=== PATIENT | male | born 1960 | race Caucasian/White ===

== ENCOUNTER 2018-03-05 16:58 | Emergency (ER) | payer OTHER ==
[~2018-03-05] VITALS: Ht 170.2 cm; Wt 95.0 kg
[~2018-03-05 16:58] MED LIST: AMOXICILLIN/CL875 MG OR; AUGMENTIN875 MG PO; AUGMENTIN875TAB PO; CIPRODEX1 ML AD; CIPRODEX1 ML OT; FIORICET PO; FLONASE NASAL50 MCG; TESSALON PER100 MG PO
[2018-03-05 18:50] VITALS: BP 133/63
== END 2018-03-05 18:53 | disposition home or self-care (01) | DRG 563 ==
LOC: ED 16:58
DX: S83.91XA Sprain of unspecified site of right knee, initial encounter (principal); E78.5 Hyperlipidemia, unspecified; W17.89XA Other fall from one level to another, initial encounter; Y93.89 Activity, other specified; Y92.89 Other specified places as the place of occurrence of the external cause; Y99.0 Civilian activity done for income or pay

== ENCOUNTER 2022-10-20 08:31 | Day surgery (SDC) | payer BC ==
[~2022-10-20] VITALS: Ht 170.2 cm; Wt 86.2 kg
[~2022-10-20 08:31] MED LIST changes: +CRESTOR20 MG PO; +ENTERIC COATED325 MG PO; +PLAVIX75 MG PO
[2022-10-20 10:47] VITALS: BP 121/81
[2022-10-21] MEDS ORDERED: ULTRAM50 MG PO (02:32)
== END 2022-10-20 15:51 | DRG 951 ==
LOC: ENDO 08:31 → ORM 10:15 → ENDO 15:51
PROVIDERS: ATTEND Internal Medicine Gastroenterology
PROC: 0DJD8ZZ Inspection of Lower Intestinal Tract, Via Natural or Artificial Opening Endoscopic (ICD-10-PCS; principal; 2022-10-20)
DX: Z12.11 Encounter for screening for malignant neoplasm of colon (principal); K57.30 Diverticulosis of large intestine without perforation or abscess without bleeding; K64.8 Other hemorrhoids; E78.2 Mixed hyperlipidemia; Z79.02 Long term (current) use of antithrombotics/antiplatelets; Z86.73 Personal history of transient ischemic attack (TIA), and cerebral infarction without residual deficits
CPT/HCPCS: Q9967

== ENCOUNTER 2022-10-20 21:46 | Emergency (ER) | payer BC ==
[2022-10-20] VITALS (7 sets, daily range): BP systolic 140–184; BP diastolic 76–102
[~2022-10-20] VITALS: Ht 170.2 cm; Wt 84.0 kg
[2022-10-20 23:20] LABS: ALBUMIN 4.6 g/dL (3.2-5.0); ALKALINE PHOSPHATASE 69 u/l (38-126); AMYLASE 93 u/l (30-110); ANION GAP 13 (6-22 (CALC)); BILIRUBIN, TOTAL 1.2 mg/dL (0.2-1.3); BUN 18 mg/dL (8-23); BUN/CREATININE RATIO 15 (12-20 (CALC)); CARBON DIOXIDE 27 mmol/l (22-30); CHLORIDE 102 mmol/l (95-108); CREATININE 1.2 mg/dL (0.7-1.3); GFR FOR AFR.AMER. > 60 ML/MIN (>=60 (CALC)); GFR OTHER RACES > 60 ML/MIN (>=60 (CALC)); LIPASE 123 u/l (23-300); SGOT/AST 27 u/l (19-48); SODIUM 138 mmol/l (137-146); TOTAL PROTEIN 7.9 g/dL (6.3-8.2)
[2022-10-20 23:21] LABS: BASO% 0.7 % (0-3); EOS% 3.3 % (0-8); HEMATOCRIT 45.7 % (39.0-50.0); HEMOGLOBIN 15.1 g/dl (14.0-18.0); IMMATURE GRANULOCYTES 0.2 % (0.0-5.0); LYMPH% 29.9 % (15-41); MEAN CORPUSCULAR HGB 30.4 pG CALC (26.0-32.0); MONO% 8.3 % (2-13); NEUT# 5.5 thou/uL (1.82-7.42); NEUT% 57.6 % (42-76); RED BLOOD COUNT 4.97 mill/uL (4.70-6.10); RED CELL DISTRI WIDTH 13.1 % (11.5-15.5)
[2022-10-20 23:25] LABS: POTASSIUM 3.7 mmol/l (3.5-5.1)
[2022-10-21] VITALS (9 sets, daily range): BP systolic 126–147; BP diastolic 75–90
[2022-10-21 01:51] LABS: URINE BILIRUBIN - DIPSTICK NEGATIVE (NEGATIVE); URINE BLOOD DIPSTICK NEGATIVE (NEGATIVE); URINE COLOR YELLOW; URINE GLUCOSE - DIPSTICK NEGATIVE (NEGATIVE); URINE KETONE NEGATIVE (NEGATIVE); URINE LEUK ESTERASE NEGATIVE (NEGATIVE); URINE PH 5.5 (4.5-8.0); URINE PROTEIN - DIPSTICK NEGATIVE (NEG-TRACE); URINE SPECIFIC GRAVITY 1.025; URINE UROBILINOGEN - DIPSTICK 0.2 E.U./dL (0.2)
[2022-10-21 01:55] LABS: URINE NITRITE - DIPSTICK NEGATIVE (Negative)
[2022-10-21] MEDS ORDERED: ULTRAM50 MG PO (02:32)
== END 2022-10-21 02:45 | disposition home or self-care (01) | DRG 392 ==
LOC: ED 21:46
PROVIDERS: Emergency Medicine
DX: R10.33 Periumbilical pain (principal); E78.5 Hyperlipidemia, unspecified; Z98.890 Other specified postprocedural states
CPT/HCPCS: Q9967

== ENCOUNTER 2024-08-04 10:12 | Emergency (ER) | payer MEDICARE ==
[~2024-08-04] VITALS: Ht 170.2 cm; Wt 86.0 kg
[2024-08-04] VITALS (14 sets, daily range): BP systolic 99–133; BP diastolic 59–78
[~2024-08-04 10:12] MED LIST changes: +ULTRAM50 MG PO
[2024-08-04 11:10] LABS: BASO% 0.6 % (0-3); EOS% 0.3 % (0-8); HEMATOCRIT 43.4 % (39.0-50.0); HEMOGLOBIN 14.1 g/dl (14.0-18.0); IMMATURE GRANULOCYTES 0.5 % (0.0-5.0); LYMPH% 7.2 % (15-41); MEAN CELL VOLUME 94.3 fL CALC (80.0-100.0); MEAN CORPUSCULAR HGB 30.7 pG CALC (26.0-32.0); MEAN CORPUSCULAR HGB CONC 32.5 g/dL CAL (32.0-36.0); MONO% 7.5 % (2-13); NEUT# 7.26 thou/uL (1.82-7.42); NEUT% 83.9 % (42-76); RED BLOOD COUNT 4.6 mill/uL (4.70-6.10)
[2024-08-04 11:22] LABS: ALBUMIN 4.2 g/dL (3.2-5.0); ALKALINE PHOSPHATASE 60 u/l (38-126); ANION GAP 15 (6-22 (CALC)); BILIRUBIN, TOTAL 0.9 mg/dL (0.2-1.3); BUN 15 mg/dL (8-23); BUN/CREATININE RATIO 15 (12-20 (CALC)); CARBON DIOXIDE 24 mmol/l (22-30); CHLORIDE 100 mmol/l (95-108); ESTIMATED GFR 84 ML/MIN (>=90 (CALC)); POTASSIUM 4.3 mmol/l (3.5-5.1); SODIUM 135 mmol/l (137-146); TOTAL PROTEIN 7.4 g/dL (6.3-8.2)
[2024-08-04 11:31] LABS: SGOT/AST 40 u/l (19-48)
[2024-08-04] MEDS ORDERED: COZAAR25 MG PO (11:34)
[2024-08-04 11:36] LABS: URINE BILIRUBIN - DIPSTICK Negative (NEGATIVE); URINE BLOOD DIPSTICK Negative (NEGATIVE); URINE GLUCOSE - DIPSTICK 250 mg/dL (NEGATIVE); URINE KETONE Trace mg/dL (NEGATIVE); URINE LEUK ESTERASE Negative (NEGATIVE); URINE NITRITE - DIPSTICK Negative (Negative); URINE PH 5.5 (4.5-8.0); URINE PROTEIN - DIPSTICK 30 mg/dL (NEG-TRACE); URINE SPECIFIC GRAVITY 1.025; URINE UROBILINOGEN - DIPSTICK 0.2 E.U./dL (0.2)
[2024-08-04 11:41] LABS: URINE COLOR Yellow
[2024-08-04 11:44] LABS: URINE MUCUS MODERATE hpf (NONE-FEW); URINE RBC 0-2 RBC/hpf (0-5); URINE WBC 0-2 WBC/hpf (0-5)
[2024-08-04 11:45] LABS: URINE HYALINE CAST MODERATE lpf (NONE-RARE)
[2024-08-04] MEDS ORDERED: TAM75CAP PO (13:35)
== END 2024-08-04 14:06 | disposition home or self-care (01) ==
LOC: ED 10:12
PROVIDERS: Family Medicine
DX: J11.1 Influenza due to unidentified influenza virus with other respiratory manifestations (principal); R55 Syncope and collapse; I10 Essential (primary) hypertension; E78.00 Pure hypercholesterolemia, unspecified; Z86.73 Personal history of transient ischemic attack (TIA), and cerebral infarction without residual deficits; Z20.822 Contact with and (suspected) exposure to COVID-19